=== PATIENT | female | born 1950 | race American Indian/Alaskan Native ===

== ENCOUNTER 2017-08-08 09:32 | Emergency (ER) | payer MEDICARE, MEDICAID, OTHER ==
[2017-08-08] MEDS ORDERED: Ketorolac 30 MG/ML SDV IM ONE ×2 (10:06→10:45)
--- NOTE | 2017-08-08 10:09 | EDM.PDOC ---
ED HPI GENERAL MEDICAL PROBLEM - General Chief Complaint: Lower Extremity Injury/Pain Stated Complaint: [id number] PAIN IN RIGHT LEG THIGH Time Seen by Provider: 08/08/17 10:04 Source of Information: Reports: Patient History Limitations: Reports: No Limitations - History of Present Illness INITIAL COMMENTS - FREE TEXT/NARRATIVE: 67 yo [place] Female c/o 3 days of right buttock and posterior thigh pain. No trauma. 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 Onset Date: 08/05/17 Onset Time: 12:00 Duration: Day(s): Location: Reports: Lower Extremity, Right Quality: Reports: Ache Severity: Moderate Improves with: Reports: None Worsens with: Reports: None Associated Symptoms: Reports: No Other Symptoms Right Upper Leg Pain Score (Numeric/FACES): 6 - Related Data Allergies Allergy/AdvReac Type Severity Reaction Status Date / Time No Known Allergies Allergy Verified 08/08/17 09:51 Home Meds: Home Meds Calcium Carbonate/Vitamin D3 [Calcium 1,000 + D3 Caplet] 1 tab PO BID 08/08/17 [ History] DULoxetine [Cymbalta] 60 mg PO BID 08/08/17 [History] Diclofenac Sodium [Voltaren] 50 mg PO DAILY 08/08/17 [History] Folic Acid/Multivit-Minerals [One-A-Day Vitacraves Gummie] 200 mcg PO DAILY [History] Lisinopril [Lisinopril] 20 mg PO DAILY 08/08/17 [History] Pregabalin [Lyrica] 75 mg PO TID 08/08/17 [History] traMADol HCl [Tramadol HCl] 100 mg PO QID 08/08/17 [History] Social & Family History - Tobacco Use Smoking Status *Q: Current Every Day Smoker Years of Tobacco use: 20 Packs/Tins Daily: 0.5 - Caffeine Use Caffeine Use: Reports: Coffee - Recreational Drug Use Recreational Drug Use: No Review of Systems - Review of Systems Review Of Systems: See Below Constitutional: Reports: No Symptoms Eyes: Reports: No Symptoms Ears: Reports: No Symptoms Nose: Reports: No Symptoms Mouth/Throat: Reports: No Symptoms Respiratory: Reports: No Symptoms Cardiovascular: Reports: No Symptoms GI/Abdominal: Reports: No Symptoms Genitourinary: Reports: No Symptoms Musculoskeletal: Reports: Other (right side buttock and right thigh pain) Skin: Reports: No Symptoms Neurological: Reports: No Symptoms Psychiatric: Reports: No Symptoms ED EXAM, GENERAL - Physical Exam Exam: See Below Exam Limited By: No Limitations General Appearance: Alert, No Apparent Distress Eye Exam: Bilateral Eye: PERRL Ears: Normal External Exam Nose: Normal Inspection Throat/Mouth: Normal Inspection Head: Atraumatic Neck: Normal Inspection Respiratory/Chest: No Respiratory Distress Cardiovascular: Normal Peripheral Pulses Peripheral Pulses: 2+: Femoral (L), Femoral (R) GI/Abdominal: Normal Bowel Sounds Back Exam: Normal Inspection, Full Range of Motion, Other (min right buttock and right thigh tenderness on palpation) Extremities: Normal Inspection Neurological: Alert, Oriented, CN II-XII Intact Psychiatric: Normal Affect Skin Exam: Warm, Dry, Intact, Normal Color, No Rash Lymphatic: No Adenopathy Course - Vital Signs Last Recorded V/S: Last Vital Signs Temp 35.9 C 08/08/17 09:44 Pulse 88 08/08/17 09:44 Resp 16 08/08/17 09:44 BP 140/87 08/08/17 09:44 Pulse Ox 100 08/08/17 09:44 - Orders/Labs/Meds Meds: Medications Discontinued Medications Generic Name Dose Route Start Last Admin Trade Name Freq PRN Reason Stop Dose Admin Ketorolac Tromethamine 30 mg 08/08/17 10:06 Toradol IM 08/08/17 10:07 ONETIME ONE Ketorolac Tromethamine 60 mg 08/08/17 10:45 Toradol IM 08/08/17 10:46 ONETIME ONE Departure - Departure Time of Disposition: 10:53 Disposition: Home, Self-Care 01 Condition: Fair Clinical Impression: Arthritis - Discharge Information Forms: ED Department Discharge Additional Instructions: Rest Apply Moist heat to area of pain TID X 15 mins.\\Take your Medication as prescribed only F/U w/ PCP for re-evaluation and possible referral for Pelvic MRI
== END 2017-08-08 11:23 | disposition home or self-care (01) ==
LOC: DL.ED 09:32
DX: M19.90 Unspecified osteoarthritis, unspecified site (principal); F17.210 Nicotine dependence, cigarettes, uncomplicated
CPT/HCPCS: 72190; 96372; 99283; J1885

== ENCOUNTER 2017-08-19 15:38 | Emergency (ER) | payer MEDICARE, MEDICAID ==
[2017-08-19] MEDS ORDERED: Sodium Chloride 0.9% 1,000 ML IV ONE (15:59)
--- NOTE | 2017-08-19 16:05 | EDM.PDOC ---
ED HPI GENERAL MEDICAL PROBLEM - General Stated Complaint: IN BY AMBULANCE Time Seen by Provider: 08/19/17 15:45 Source of Information: Reports: Patient History Limitations: Reports: No Limitations - History of Present Illness INITIAL COMMENTS - FREE TEXT/NARRATIVE: This 67 yo female patient reports to the ED with increased shortness of breath this afternoon. The patient reports she was seen in the ED on Thursday for right posterior thigh pain. The patient was seen in the [facility] yesterday as a follow-up to the ED visit and was also treated for a UTI. The patient reports she is scheduled for an MRI on Thursday for the pain in her right posterior thigh. The patient reports no history of anxiety, but also reports she is nervous about her health. The patient recently quit smoking and is on Chantex. Onset: Today Duration: Constant Location: Reports: Chest Quality: Reports: Ache, Dull Severity: Moderate Improves with: Reports: None Worsens with: Reports: None - Related Data Allergies Allergy/AdvReac Type Severity Reaction Status Date / Time No Known Allergies Allergy Verified 08/19/17 15:46 Home Meds: Home Meds Calcium Carbonate/Vitamin D3 [Calcium 1,000 + D3 Caplet] 1 tab PO BID 08/08/17 [ History] DULoxetine [Cymbalta] 60 mg PO BID 08/08/17 [History] Diclofenac Sodium [Voltaren] 50 mg PO DAILY 08/08/17 [History] Folic Acid/Multivit-Minerals [One-A-Day Vitacraves Gummie] 200 mcg PO DAILY [History] Lisinopril [Lisinopril] 20 mg PO DAILY 08/08/17 [History] Pregabalin [Lyrica] 75 mg PO TID 08/08/17 [History] traMADol HCl [Tramadol HCl] 100 mg PO QID 08/08/17 [History] Varenicline Tartrate [Chantix] 08/19/17 [History] Past Medical History HEENT History: Reports: None Cardiovascular History: Reports: None Respiratory History: Reports: None Gastrointestinal History: Reports: None Genitourinary History: Reports: None 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 Neurological History: Reports: None Psychiatric History: Reports: Anxiety, Depression Endocrine/Metabolic History: Reports: None Hematologic History: Reports: None Immunologic History: Reports: None Oncologic (Cancer) History: Reports: None Dermatologic History: Reports: None - Infectious Disease History Infectious Disease History: Reports: Measles - Past Surgical History Head Surgeries/Procedures: Reports: None Musculoskeletal Surgical History: Reports: Knee Replacement, Shoulder Surgery Other Musculoskeletal Surgeries/Procedures:: back surgury Social & Family History - Tobacco Use Smoking Status *Q: Current Every Day Smoker Years of Tobacco use: 20 Packs/Tins Daily: 0.5 - Caffeine Use Caffeine Use: Reports: Coffee - Recreational Drug Use Recreational Drug Use: No ED ROS GENERAL - Review of Systems Review Of Systems: ROS reveals no pertinent complaints other than HPI. ED EXAM, GENERAL - Physical Exam Exam: See Below Exam Limited By: No Limitations General Appearance: Alert, WD/WN, Mild Distress, Thin Eye Exam: Bilateral Eye: EOMI, Normal Inspection, PERRL Ears: Normal External Exam, Normal Canal, Hearing Grossly Normal, Normal TMs Nose: Normal Inspection, Normal Mucosa, No Blood Throat/Mouth: Normal Inspection, Normal Lips, Normal Teeth, Normal Gums, Normal Oropharynx, Normal Voice, No Airway Compromise Head: Atraumatic, Normocephalic Neck: Normal Inspection, Supple, Non-Tender, Full Range of Motion Respiratory/Chest: No Respiratory Distress, No Accessory Muscle Use, Chest Non- Tender, Decreased Breath Sounds, Rhonchi (diffuse) Cardiovascular: Normal Peripheral Pulses, Regular Rate, Rhythm, No Edema, No Gallop, No JVD, No Murmur, No Rub GI/Abdominal: Normal Bowel Sounds, Soft, Non-Tender, No Organomegaly, No Distention, No Abnormal Bruit, No Mass Rectal (Female) Exam: Deferred Back Exam: Normal Inspection Extremities: Normal Inspection, Normal Range of Motion, Non-Tender, Normal Capillary Refill, No Pedal Edema Neurological: Alert, Oriented, CN II-XII Intact, Normal Cognition, Normal Gait, Normal Reflexes, No Motor/Sensory Deficits Psychiatric: Anxious Skin Exam: Warm, Dry, Intact, Normal Color, No Rash Lymphatic: No Adenopathy Course - Vital Signs Last Recorded V/S: Last Vital Signs Temp 36.1 C 08/19/17 15:47 Pulse 72 08/19/17 15:47 Resp 16 08/19/17 15:47 BP 99/67 08/19/17 15:47 Pulse Ox 98 08/19/17 15:47 - Orders/Labs/Meds Orders: Active Orders 24 hr Category Date Time Status EKG Documentation Completion [RC] URGENT Care 08/19/17 15:43 Active CULTURE BLOOD [BC] Stat Lab 08/19/17 15:15 Received CULTURE BLOOD [BC] Stat Lab 08/19/17 16:00 Received UA W/MICROSCOPIC [URIN] Stat Lab 08/19/17 15:44 Uncollected Sodium Chloride 0.9% [Normal Saline] 1,000 ml Med 08/19/17 15:59 Active IV .BOLUS Blood Culture x2 Reflex Set [OM.PC] Stat Oth 08/19/17 15:44 Ordered Medication Orders Sodium Chloride (Normal Saline) 1,000 mls @ 500 mls/hr IV .BOLUS ONE Stop: 08/19/17 17:58 Last Admin: 08/19/17 16:09 Dose: 500 mls/hr Labs: Laboratory Tests 08/19/17 08/19/17 08/19/17 Range/Units 15:15 15:15 15:15 WBC 6.9 (5.0-10.0) 10^3/uL RBC 3.80 L (4.2-5.4) 10^6/uL Hgb 11.5 L (12.0-16.0) g/dL Hct 34.7 L (37.0-47.0) % MCV 91.3 (80-100) fL MCH 30.3 (27.0-34.0) pg MCHC 33.1 (33.0-35.0) g/dL Plt Count 222 (150-450) 10^3/uL Neut % (Auto) 79.7 H (42.2-75.2) % Lymph % (Auto) 8.7 L (20.5-50.1) % [place] % (Auto) 10.8 H (2-8) % Eos % (Auto) 0.7 L (1.0-3.0) % Baso % (Auto) 0.1 (0.0-1.0) % Sodium 133 L (135-145) mmol/L Potassium 4.0 (3.6-5.0) mmol/L Chloride 99 L (101-111) mmol/L Carbon Dioxide 26.0 (21.0-31.0) mmol/L Anion Gap 12.0 BUN 16 (7-18) mg/dL Creatinine 1.0 (0.6-1.3) mg/dL Est Cr Clr Drug Dosing 50.41 mL/min Estimated GFR (MDRD) 55 BUN/Creatinine Ratio 16.00 Glucose 118 H (74-105) mg/dL Lactic Acid 0.9 (0.5-2.2) mmol/L Calcium 8.7 (8.4-10.2) mg/dl Total Bilirubin 0.5 (0.2-1.0) mg/dL AST 22 (10-42) IU/L ALT 15 (10-60) IU/L Alkaline Phosphatase 65 (42-121) IU/L Troponin I < 0.02 (0.00-0.02) ng/ml Total Protein 5.9 L (6.7-8.2) g/dl Albumin 3.3 (3.2-5.5) g/dl Globulin 2.6 Albumin/Globulin Ratio 1.27 Meds: Medications Generic Name Dose Route Start Last Admin Trade Name Freq PRN Reason Stop Dose Admin Sodium Chloride 1,000 mls @ 500 mls/hr 08/19/17 15:59 08/19/17 16:09 Normal Saline IV 08/19/17 17:58 500 mls/hr .BOLUS ONE Administration Departure - Departure Time of Disposition: 17:28 Disposition: Home, Self-Care 01 Condition: Fair Clinical Impression: Medication reaction Qualifiers: Encounter type: initial encounter Qualified Code(s): T88.7XXA - Unspecified adverse effect of drug or medicament, initial encounter - Discharge Information Forms: ED Department Discharge Care Plan Goals: The patient was advised of the examination, EKG, lab and x-ray results during the visit. The patient was given IV fluids while in the ED. The [facility] [place] has made arrangements for the patient's daughter for the night so the patient may get some rest. The patient was encouraged to follow-up with her primary care facility for continued evaluation and treatment. The patient was encouraged to stop taking Chantix. If the patient has any additional symptoms or concerns, the patient should follow-up with her primary care facility or return to the emergency department. - My Orders Last 24 Hours: My Active Orders 08/19/17 15:15 CULTURE BLOOD [BC] Stat 08/19/17 15:43 EKG Documentation Completion [RC] URGENT 08/19/17 15:44 UA W/MICROSCOPIC [URIN] Stat Blood Culture x2 Reflex Set [OM.PC] Stat 08/19/17 15:59 Sodium Chloride 0.9% [Normal Saline] 1,000 ml IV .BOLUS 08/19/17 16:00 CULTURE BLOOD [BC] Stat - Assessment/Plan Last 24 Hours: My Active Orders 08/19/17 15:15 CULTURE BLOOD [BC] Stat 08/19/17 15:43 EKG Documentation Completion [RC] URGENT 08/19/17 15:44 UA W/MICROSCOPIC [URIN] Stat Blood Culture x2 Reflex Set [OM.PC] Stat 08/19/17 15:59 Sodium Chloride 0.9% [Normal Saline] 1,000 ml IV .BOLUS 08/19/17 16:00 CULTURE BLOOD [BC] Stat
[2017-08-19 16:29] LABS: CHLORIDE,CL 99 mmol/L (101-111); SODIUM,NA 133 mmol/L (135-145)
--- NOTE | 2017-08-19 16:49 | CR ---
Clinical history: 67-year-old female shortness of breath and tachycardia. Interpretation: Total orthopedic replacement right shoulder. Faint atheromatous calcifications arch o f the aorta. Normal cardiac silhouette without cephalization of flow, signs of alveolar edema or dependent effusio n. No lung mass, hilar lymphadenopathy or focal lobar pneumonia. No atelectasis/collapse. No pneumothorax.
--- NOTE | 2017-08-24 07:32 | EKG ---
08/19/2017 - JENNY LORENZANA - FINDINGS: This 12-lead EKG shows a normal sinus rhythm with a ventricular rate of 73. Normal axis and intervals. No acute ST-segment or T-wave changes. [facility] /[id number]
== END 2017-08-19 17:40 | disposition home or self-care (01) ==
LOC: DL.ED 15:38
DX: R06.02 Shortness of breath (principal); T50.905A Adverse effect of unspecified drugs, medicaments and biological substances, initial encounter; F17.210 Nicotine dependence, cigarettes, uncomplicated
CPT/HCPCS: 36415; 71010; 80053; 83605; 84484; 85025; 87040; 93005; 93010; 96360; 99285; J7030; 99284

== ENCOUNTER 2017-09-26 03:41 | Emergency (ER) | payer MEDICARE, MEDICAID ==
[2017-09-26] MEDS ORDERED: Morphine 2 MG/ML Syringe IVPUSH ONE ×2 (03:49→04:42)
--- NOTE | 2017-09-26 03:55 | EDM.PDOC ---
ED HPI GENERAL MEDICAL PROBLEM - General Stated Complaint: AMBULANCE Time Seen by Provider: 09/26/17 03:45 Source of Information: Reports: Patient History Limitations: Reports: No Limitations - History of Present Illness INITIAL COMMENTS - FREE TEXT/NARRATIVE: This 67 yo female patient was brought to the ED by [facility] due to left forearm pain. The patient reports she got up to go to the bathroom, tripped and fell. The patient reports pain in her left forearm. EMS brought the patient to the ED with a splint on her left forearm. EMS reports an open wound over the area of deformity. The patient reports her current pain is a 10/10. The patient reports she is currently staying with her daughter to assist her due to blindness. The patient reports no loss of consciousness before, during or after the fall. Onset: Today Duration: Minutes: (30) Location: Reports: Upper Extremity, Left Quality: Reports: Ache, Sharp Severity: Severe Improves with: Reports: None Worsens with: Reports: None Context: Reports: Trauma (ground level fall) Associated Symptoms: Reports: No Other Symptoms Left Lower Arm Pain Score (Numeric/FACES): 10 - Related Data Allergies Allergy/AdvReac Type Severity Reaction Status Date / Time No Known Allergies Allergy Verified 08/19/17 15:46 Home Meds: Home Meds Calcium Carbonate/Vitamin D3 [Calcium 1,000 + D3 Caplet] 1 tab PO BID 08/08/17 [ History] DULoxetine [Cymbalta] 90 mg PO DAILY 08/08/17 [History] Diclofenac Sodium [Voltaren] 50 mg PO QID PRN 08/08/17 [History] Lisinopril [Lisinopril] 40 mg PO DAILY 08/08/17 [History] Pregabalin [Lyrica] 100 mg PO TID 08/08/17 [History] traMADol HCl [Tramadol HCl] 75 mg PO TID 08/08/17 [History] Past Medical History HEENT History: Reports: None Cardiovascular History: Reports: None Respiratory History: Reports: None 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5 Gastrointestinal History: Reports: None Genitourinary History: Reports: None 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 Musculoskeletal History: Reports: Arthritis, Osteoporosis Neurological History: Reports: None Psychiatric History: Reports: Anxiety, Depression Endocrine/Metabolic History: Reports: None Hematologic History: Reports: None Immunologic History: Reports: None Oncologic (Cancer) History: Reports: None Dermatologic History: Reports: None - Infectious Disease History Infectious Disease History: Reports: Measles - Past Surgical History HEENT Surgical History: Reports: Cataract Surgery Social & Family History - Family History Family Medical History: Noncontributory - Tobacco Use Smoking Status *Q: Current Every Day Smoker Years of Tobacco use: 20 Packs/Tins Daily: 0.5 Second Hand Smoke Exposure: Yes - Caffeine Use Caffeine Use: Reports: Coffee - Recreational Drug Use Recreational Drug Use: No Review of Systems - Review of Systems Review Of Systems: ROS reveals no pertinent complaints other than HPI. ED EXAM, GENERAL - Physical Exam Exam: See Below Exam Limited By: No Limitations General Appearance: Alert, WD/WN, Moderate Distress, Thin Eye Exam: Bilateral Eye: EOMI, Normal Inspection, PERRL Ears: Normal External Exam, Normal Canal, Hearing Grossly Normal, Normal TMs Nose: Normal Inspection, Normal Mucosa, No Blood Throat/Mouth: Normal Inspection, Normal Lips, Normal Teeth, Normal Gums, Normal Oropharynx, Normal Voice, No Airway Compromise Head: Atraumatic, Normocephalic Neck: Normal Inspection, Supple, Non-Tender, Full Range of Motion Respiratory/Chest: No Respiratory Distress, Lungs Clear, Normal Breath Sounds, No Accessory Muscle Use, Chest Non-Tender Cardiovascular: Normal Peripheral Pulses, Regular Rate, Rhythm, No Edema, No Gallop, No JVD, No Murmur, No Rub GI/Abdominal: Normal Bowel Sounds, Soft, Non-Tender, No Organomegaly, No Distention, No Abnormal Bruit, No Mass (Female) Exam: Deferred Rectal (Female) Exam: Deferred Neurological: Alert, Oriented, CN II-XII Intact, Normal Cognition, Normal Reflexes, Other (The patient was not able to move her fingers due to increased pain, but reports normal sensation distal to her injury. ) Psychiatric: Normal Affect, Normal Mood Lymphatic: No Adenopathy Course - Vital Signs Last Recorded V/S: Last Vital Signs Temp 36.9 C 09/26/17 03:42 Pulse 79 09/26/17 03:42 Resp 18 09/26/17 03:42 BP 151/79 H 09/26/17 03:42 Pulse Ox 99 09/26/17 03:42 - Orders/Labs/Meds Orders: Active Orders 24 hr Category Date Time Status Forearm 2V Lt [CR] Urgent Exams 12/02/17 03:43 Taken Morphine Med 09/26/17 04:42 Once 2 mg IVPUSH ONETIME ONE Labs: Laboratory Tests 09/26/17 09/26/17 Range/Units 03:50 03:50 WBC 5.7 (5.0-10.0) 10^3/uL RBC 4.37 (4.2-5.4) 10^6/uL Hgb 13.0 D (12.0-16.0) g/dL Hct 40.4 (37.0-47.0) % MCV 92.4 (80-100) fL MCH 29.7 (27.0-34.0) pg MCHC 32.2 L (33.0-35.0) g/dL Plt Count 243 (150-450) 10^3/uL Neut % (Auto) 64.0 (42.2-75.2) % Lymph % (Auto) 23.4 (20.5-50.1) % [place] % (Auto) 9.2 H (2-8) % Eos % (Auto) 3.1 H (1.0-3.0) % Baso % (Auto) 0.3 (0.0-1.0) % Sodium 140 (135-145) mmol/L Potassium 3.7 (3.6-5.0) mmol/L Chloride 104 (101-111) mmol/L Carbon Dioxide 28.0 (21.0-31.0) mmol/L Anion Gap 11.7 BUN 16 (7-18) mg/dL Creatinine 0.8 (0.6-1.3) mg/dL Est Cr Clr Drug Dosing 65.45 mL/min Estimated GFR (MDRD) > 60 BUN/Creatinine Ratio 20.00 Glucose 106 H (74-105) mg/dL Calcium 9.0 (8.4-10.2) mg/dl Total Bilirubin 0.4 (0.2-1.0) mg/dL AST 28 (10-42) IU/L ALT 16 (10-60) IU/L Alkaline Phosphatase 61 (42-121) IU/L Total Protein 6.2 L (6.7-8.2) g/dl Albumin 3.8 (3.2-5.5) g/dl Globulin 2.4 Albumin/Globulin Ratio 1.58 Meds: Medications Discontinued Medications Generic Name Dose Route Start Last Admin Trade Name Swapna PRN Reason Stop Dose Admin Morphine Sulfate 2 mg 09/26/17 03:49 09/26/17 04:12 Morphine IVPUSH 09/26/17 03:50 2 mg ONETIME ONE Administration Departure - Departure Time of Disposition: 04:42 Disposition: DC/Tfer to Acute Hospital 02 Condition: Fair Clinical Impression: Open fracture of left radius and ulna Qualifiers: Encounter type: initial encounter Open fracture type: open type I or II Qualified Code(s): S52.92XB - Unspecified fracture of left forearm, initial encounter for open fracture type I or II; S52.202B - Unspecified fracture of shaft of left ulna, initial encounter for open fracture type I or II; S52.202B - Unspecified fracture of shaft of left ulna, initial encounter for open fracture type I or II - Discharge Information Forms: Interfacility Transfer EMTALA Care Plan Goals: Discussed the examination, history and x-ray results with Dr. Pizarro (Ortho with [facility] in [place]). Dr. Pizarro accepted the patient for continued evaluation and further management. The patient will be transported by [facility]. - My Orders Last 24 Hours: My Active Orders 09/26/17 03:43 Forearm 2V Lt [CR] Urgent 09/26/17 04:42 Morphine 2 mg IVPUSH ONETIME ONE - Assessment/Plan Last 24 Hours: My Active Orders 09/26/17 03:43 Forearm 2V Lt [CR] Urgent 09/26/17 04:42 Morphine 2 mg IVPUSH ONETIME ONE
[2017-09-26 04:20] LABS: CHLORIDE,CL 104 mmol/L (101-111); SODIUM,NA 140 mmol/L (135-145)
== END 2017-09-26 05:16 ==
LOC: DL.ED 03:41
DX: S52.202B Unspecified fracture of shaft of left ulna, initial encounter for open fracture type I or II (principal); F17.210 Nicotine dependence, cigarettes, uncomplicated; Z79.899 Other long term (current) drug therapy; W01.0XXA Fall on same level from slipping, tripping and stumbling without subsequent striking against object, initial encounter
CPT/HCPCS: 36415; 73090; 80053; 85025; 96374; 96376; 99285; J2270; 99284

== ENCOUNTER 2019-02-14 06:19 | Day surgery (SDC) | payer MEDICARE, MEDICAID ==
[~2019-02-14 06:19] MED LIST: Dextrose 5%-0.45% NaCl 1,000 ML IV SCH; Midazolam 1 MG/ML 2 ML SDV ONE; Sodium Chloride 0.9% 10 ML Syringe FLUSH PRN; fentaNYL 100 MCG/2 ML SDV ONE
[2019-02-14] MEDS ORDERED: Midazolam 1 MG/ML 2 ML SDV IV ONE ×3 (06:20→07:07)
[2019-02-14] MEDS ORDERED: fentaNYL 100 MCG/2 ML SDV IV ONE ×3 (06:20→07:06)
--- NOTE | 2019-02-14 13:46 | OR ---
DATE: 02/14/2019 PROCEDURE PERFORMED: Esophagogastroduodenoscopy, NBI, and multiple pinch biopsies. INSTRUMENT USED: [id number]-[id number] Olympus video panendoscope. PREMEDICATIONS: No oral topical anesthesia used. Fentanyl 100 mcg intravenous, Versed 2 mg intravenous. Nasal O2 cannula. The procedure was done under pulse oximetry, BP recording, and gasoline tester. INDICATION: The patient with heartburn as well as high to mid dysphagia for solids, unexplained and not responsive to medical measures, status post Fosamax therapy. Esophagogastroduodenoscopy is performed for detection of any active erosive lesions, Pablo esophagus, and/or malignancy also under consideration. H. pylori status to be determined, esophageal dilatations if indicated, endoscopic hemostasis therapy if needed. PROCEDURE IN DETAIL: The scope was passed with ease. Adequate visualization of the esophagus was made from proximal to distal areas. No upper esophageal lesions identified. No distal esophageal stricture. No uphill or downhill esophageal varices. No Hillary-Silveira tear. Grade D erosive changes were noted by [place] criteria. No esophageal polyp or tumor mass identified. Sliding hiatal hernia was noted. No proximal gastric varices noted. Gastric fundus examination by retroflexion showed no polypoid lesions. Z-line was noted at around 35 cm distal to the oral verge. No gastric ulcer, malignant mass, or vascular ectasia identified. Duodenal bulb showed no ulcer. Visualized second part of the duodenum was unremarkable. Multiple pinch biopsies were taken from the gastric antrum and proximal body and sent for PyloriTek test for H. pylori, and if negative in an hour, tissue is to be sent for histopathology. No bleeding was noted from any of the visualized areas at the completion of examination. Photographs were taken of the duodenal bulb, gastric antrum, fundus, and distal esophagus, NBI views of the distal esophagus were obtained. IMPRESSION: 1. Grade D gastroesophageal reflux disease. 2. Sliding hiatal hernia. The patient tolerated the procedure well. [facility] /[id number]
--- NOTE | 2019-02-14 15:00 | LETTER ---
02/14/2019 Bekah Ivory MD [facility] [address] [place] [address] RE: MARYJO SOLIS : [address] Ivory: Ms. Maryjo Solis had esophagogastroduodenoscopy done this morning and she tolerated the procedure well. She has been recommended to keep away from esophageal and gastric irritants. She was put on omeprazole 20 mg p.o. daily. Thank you. Sincerely, [facility] /[id number]
== END 2019-02-14 09:08 | disposition home or self-care (01) ==
LOC: DL.ENDO 06:19
PROVIDERS: ATTEND Internal Medicine Gastroenterology
DX: K29.50 Unspecified chronic gastritis without bleeding (principal); K21.0 Gastro-esophageal reflux disease with esophagitis; K44.9 Diaphragmatic hernia without obstruction or gangrene; B96.81 Helicobacter pylori [H. pylori] as the cause of diseases classified elsewhere; I10 Essential (primary) hypertension; F17.210 Nicotine dependence, cigarettes, uncomplicated; M81.0 Age-related osteoporosis without current pathological fracture; Z80.0 Family history of malignant neoplasm of digestive organs; Z98.890 Other specified postprocedural states
CPT/HCPCS: 43239; 87077; J2250; J3010; J7042; 88305; 88342

== ENCOUNTER 2019-02-17 06:04 | Day surgery (SDC) | payer MEDICARE, MEDICAID, OTHER ==
[~2019-02-17 06:04] MED LIST changes: -Midazolam 1 MG/ML 2 ML SDV ONE; -fentaNYL 100 MCG/2 ML SDV ONE
[2019-02-17] MEDS ORDERED: Midazolam 1 MG/ML 2 ML SDV IV ONE ×6 (06:05→07:41)
[2019-02-17] MEDS ORDERED: fentaNYL 100 MCG/2 ML SDV IV ONE ×3 (06:05→07:30)
[2019-02-17] MEDS ORDERED: Midazolam 1 MG/ML 2 ML SDV ONE (06:14)
[2019-02-17] MEDS ORDERED: fentaNYL 100 MCG/2 ML SDV ONE (06:14)
--- NOTE | 2019-02-17 13:28 | OR ---
DATE: 02/17/2019 PROCEDURE PERFORMED: Total colonoscopy. INSTRUMENT USED: [id number]-[id number] Olympus video colonoscope. PREMEDICATIONS: Fentanyl 100 mcg intravenous, Versed 3 mg intravenous. Nasal O2 cannula. The procedure was done under pulse oximetry, BP recording, and shelter monitor. INDICATION: The patient with recent onset of constipation, unexplained and not responsive to medical measures. Colonoscopic examination is done for detection of any polypoid lesions and removal, endoscopic hemostasis therapy if needed. Has family history for colon cancer. DESCRIPTION OF PROCEDURE: Initial rectal exam was unremarkable. Rigid anoscopy was normal. The colonoscope was passed with ease. Scattered diverticula were noted in the distal left colon along with some deformity. The scope was passed with ease up to the ileocecal area. Photographs were taken of the normal- appearing cecum, identified by double-bulged ileocecal folds. No bleeding was noted from any of the visualized areas at the commencement of the examination. There was moderate amount of fecal material that had to be aspirated. Bowel preparation, [place] scale 2. No stricture. No vascular ectasia. No large isolated ulcerations seen. No evidence of diffuse inflammatory bowel disease in the form of friability, contact bleeding, or ulcerations. No polyp or tumor mass identified. Probing the proximal sides of folds and flexures using adequate distention and clearing up the stool material, withdrawal of the scope was made, cecum to rectum, time over 6 minutes. No bleeding was noted from any of the visualized areas at the completion of examination. IMPRESSION: Diverticulosis. The patient tolerated the procedure well. [facility] /[id number]
--- NOTE | 2019-02-17 15:08 | LETTER ---
02/17/2019 Bekah Ivory MD [facility] [address] [place] [address] RE: MARYJO SOLIS : [address] Ivory: Ms. Maryjo Solis had colonoscopic examination done this morning and she tolerated the procedure well. I herewith send a copy of the endoscopy note and photographs for your review. Thank you. Sincerely, [facility] /[id number]
== END 2019-02-17 09:54 | disposition home or self-care (01) ==
LOC: DL.ENDO 06:04
PROVIDERS: ATTEND Internal Medicine Gastroenterology
DX: K57.30 Diverticulosis of large intestine without perforation or abscess without bleeding (principal); I10 Essential (primary) hypertension; F17.210 Nicotine dependence, cigarettes, uncomplicated; M81.0 Age-related osteoporosis without current pathological fracture; Z80.0 Family history of malignant neoplasm of digestive organs
CPT/HCPCS: G0105; J2250; J3010; J7042; 45378

== ENCOUNTER → 2019-07-07 | Day surgery (SDC) | payer MEDICARE, MEDICAID, OTHER ==
[~2019-07-07] MED LIST changes: +Bupivacaine 0.5% 30 ML SDV ONE; -Dextrose 5%-0.45% NaCl 1,000 ML IV SCH; +Lactated Ringers 1,000 ML IV SCH; +Lidocaine 1% 30 ML SDV ONE; +ceFAZolin 2 GM in Premix Bag 1 BAG IV ONE
== END ==
LOC: DL.SDS 08:09
PROVIDERS: ATTEND Podiatrist
DX: M21.612 Bunion of left foot (principal); Z53.8 Procedure and treatment not carried out for other reasons
CPT/HCPCS: J0690; J7120

== ENCOUNTER 2019-07-21 08:59 | Day surgery (SDC) | payer MEDICARE, MEDICAID, OTHER ==
[~2019-07-21 08:59] MED LIST changes: -Bupivacaine 0.5% 30 ML SDV ONE; -Lidocaine 1% 30 ML SDV ONE; -ceFAZolin 2 GM in Premix Bag 1 BAG IV ONE
[2019-07-21] MEDS ORDERED: Lidocaine 1% 30 ML SDV INJECT ONE (09:00)
[2019-07-21] MEDS ORDERED: Midazolam 1 MG/ML 2 ML SDV IV ONE (09:00)
[2019-07-21] MEDS ORDERED: fentaNYL 100 MCG/2 ML SDV IV ONE (09:00)
[2019-07-21] MEDS ORDERED: Propofol 200 MG/20 ML SDV IV ONE (09:00)
[2019-07-21] MEDS ORDERED: Bupivacaine 0.5% 30 ML SDV INJECT ONE (09:00)
[2019-07-21] MEDS ORDERED: Ondansetron 4 MG/2 ML SDV IV ONE (09:00)
[2019-07-21] MEDS ORDERED: Bupivacaine 0.5% 30 ML SDV ONE (10:12)
[2019-07-21] MEDS ORDERED: Lidocaine 1% 30 ML SDV ONE (10:12)
[2019-07-21] MEDS: ceFAZolin 2 GM in Premix Bag 1 BAG IV ONE (10:20)
[2019-07-21] MEDS: Lidocaine 1% 30 ML SDV INJECT ONE ×2 (10:36→11:40)
[2019-07-21] MEDS: Bupivacaine 0.5% 30 ML SDV INJECT ONE ×2 (10:36→11:40)
[2019-07-21] MEDS ORDERED: Acetaminophen/oxyCODONE 325-5 MG Tab PO PRN (12:08)
--- NOTE | 2019-07-21 12:10 | PCM.OPNOTE ---
- General Post-Op/Procedure Note Date of Surgery/Procedure: 07/21/19 Operative Procedure(s): left foot 1st metatarsal bunionectomy Pre Op Diagnosis: left foot painful bunion Post-Op Diagnosis: francesco Anesthesia Technique: Local, MAC Primary Surgeon: Lata Lui Anesthesia Provider: Yfn Mota EBL in mLs: 5 Complications: none Condition: Good Free Text/Narrative:: Pt tolerated procedure well and was transported to recovery with vascular status intact to left foot. nora 3.0 cannulated screws placed at osteotomy site. well padded compression dressing applied.
[2019-07-21] MEDS: Lactated Ringers 1,000 ML IV SCH (13:48)
--- NOTE | 2019-07-22 19:55 | OR ---
DATE: 07/21/2019 PREOPERATIVE DIAGNOSIS: Left foot painful bunion. POSTOPERATIVE DIAGNOSIS: Left foot painful bunion. PROCEDURE PERFORMED: Left foot first metatarsal osteotomy/bunionectomy. ANESTHESIA: Local MAC with preoperative local block of 10 mL 1:1 mixture of 1% lidocaine plain and 0.5% Marcaine plain. TOURNIQUET TIME: 60 minutes, pneumatic ankle tourniquet. ESTIMATED BLOOD LOSS: Minimal. SPECIMEN: None. COMPLICATIONS: None. INDICATIONS: Maryjo is a 69-year-old female who presents with painful bunion on her left foot. This has been bothering her for several years now. She has tried multiple different shoes and padding without relief. She states she did have a bunionectomy performed on her right foot when she lived in [place], this was several years ago. She is doing well with that. She has failed conservative options for surgery. X-rays of the left foot revealed a medially deviated first metatarsal with an IM angle of approximately 10 degrees; however, there is a significant metatarsus adductus present. There is a subchondral cyst at the first metatarsal head. The patient voiced good understanding of proposed procedure and possible complications and elects to have surgery at this time. DESCRIPTION OF PROCEDURE: The patient was taken to the operating room lying in supine position. After adequate anesthesia induction as described above, the left foot was prepped and draped in the usual sterile fashion. Pneumatic ankle tourniquet was inflated to 225 mmHg. Attention was then directed to the dorsal aspect of the first metatarsophalangeal joint where an approximately 6 cm linear incision was made overlying the joint. Sharp and blunt dissection were performed down to the level of the joint capsule with care to gently retract all neurovascular structures. An inverted L capsulotomy was made to expose the distal first metatarsal. A hypertrophic medial eminence was noted, and there was some denuded cartilage at the dorsal medial aspect of the joint. This was removed with a sagittal saw. The rest of the joint appeared healthy in appearance without any defects present. Blunt dissection was performed in the first interspace to the level of the fibular sesamoid, and the adductor hallucis tendon was transected. A sagittal saw was then used to make a chevron-type osteotomy with a long dorsal arm angulated in a fashion that would allow maintenance of length with lateral transposition of the capital fragment. The capital fragment was then transposed laterally 7 mm and impacted to bring the hallux in a new rectus alignment. K-wire from the screw sets were then used as temporary fixation. Two partially-threaded cannulated [place] screws, 3.0 screws, were then placed across the osteotomy site. The osteotomy site was noted to be stable with all forces applied and fluid range of motion of first MTPJ. Fluoroscopy was used to verify proper reduction of the deformity and proper fixation. The medial shelf was removed. A medial capsulorrhaphy was made. The patient was noted to have very soft bone throughout this procedure; therefore, reason for the Yamileth bunionectomy rather than a more proximal procedure. The area was irrigated with copious amounts of sterile saline. Capsular closure was completed with 3-0 Vicryl. Skin closure was completed with 4-0 nylon. The area was dressed with Xeroform to the incision site, fluffs, Webril, and Lane wrap. She was placed on weightbearing. The patient tolerated the anesthesia well and was transported to Recovery with vascular status intact as noted by immediate hyperemia upon deflation of the ankle tourniquet. She was then discharged home when she met hospital discharge requirements. [facility] /[id number]
== END 2019-07-21 13:28 | disposition home or self-care (01) ==
LOC: DL.SDS 08:59
PROVIDERS: ATTEND Podiatrist
DX: M21.612 Bunion of left foot (principal); I10 Essential (primary) hypertension; K21.9 Gastro-esophageal reflux disease without esophagitis; F17.210 Nicotine dependence, cigarettes, uncomplicated; F32.9 Major depressive disorder, single episode, unspecified; B19.20 Unspecified viral hepatitis C without hepatic coma; M81.0 Age-related osteoporosis without current pathological fracture; M17.12 Unilateral primary osteoarthritis, left knee; N39.3 Stress incontinence (female) (male); Z79.51 Long term (current) use of inhaled steroids; Z79.1 Long term (current) use of non-steroidal anti-inflammatories (NSAID); Z79.899 Other long term (current) drug therapy
CPT/HCPCS: 28296; C1713; J0690; J2001; J2250; J2405; J2704; J3010; J3490; J7120

== ENCOUNTER 2019-08-17 11:22 | Day surgery (SDC) | payer MEDICARE, MEDICAID, OTHER ==
[~2019-08-17 11:22] MED LIST changes: -Lactated Ringers 1,000 ML IV SCH
[2019-08-17] MEDS ORDERED: Bupivacaine 0.5% 30 ML SDV INJECT ONE ×4 (11:23→14:23)
[2019-08-17] MEDS ORDERED: Lidocaine 1% 30 ML SDV INJECT ONE ×4 (11:23→14:23)
[2019-08-17] MEDS ORDERED: Bupivacaine 0.5% 30 ML SDV ONE (11:52)
[2019-08-17] MEDS ORDERED: Lidocaine 1% 30 ML SDV ONE (11:53)
[2019-08-17] MEDS ORDERED: Lactated Ringers 1,000 ML IV SCH (12:00)
[2019-08-17] MEDS ORDERED: ceFAZolin 2 GM in Premix Bag 1 BAG IV ONE (12:00)
[2019-08-17] MEDS ORDERED: Acetaminophen/oxyCODONE 325-5 MG Tab PO PRN (14:55)
--- NOTE | 2019-08-17 16:35 | PCM.OPNOTE ---
- General Post-Op/Procedure Note Date of Surgery/Procedure: 08/17/19 Operative Procedure(s): left foot revisional bunionectomy with non union repair , 2nd metatarsal closed reduction of fracture. Pre Op Diagnosis: left foot displacement after bunionectomy with non union , 2nd metatarsal fracture. Post-Op Diagnosis: francesco Anesthesia Technique: Local, MAC Primary Surgeon: Lata Lui Anesthesia Provider: Yfn Mota EBL in mLs: 5 Complications: none Condition: Stable Free Text/Narrative:: Intake & Output 08/17/19 08/17/19 08/17/19 06:59 14:59 22:59 Intake Total 50 800 Balance 50 800 Pt tolerated procedure well and was transported to recovery with vascular status intact to left foot. 2.7 nora locking screws placed at non union site with 4 hole plate.
--- NOTE | 2019-08-18 15:53 | OR ---
DATE: 08/17/2019 PREOPERATIVE DIAGNOSES: 1. Left foot displaced osteotomy fragment of the bunionectomy. 2. Left foot second metatarsal fracture. POSTOPERATIVE DIAGNOSES: 1. Left foot displaced osteotomy fragment of the bunionectomy. 2. Left foot second metatarsal fracture. PROCEDURES PERFORMED: 1. Left foot hardware excision with nonunion repair and revisional bunionectomy of the first metatarsal. 2. Left foot closed reduction of the second metatarsal. ANESTHESIA: Local MAC with preoperative local block of 10 mL 1:1 mixture of 1% lidocaine plain and 0.5% Marcaine plain. TOURNIQUET TIME: 88 minutes, pneumatic ankle tourniquet. ESTIMATED BLOOD LOSS: Minimal. SPECIMEN: None. COMPLICATIONS: None. INDICATIONS: Maryjo is a 69-year-old female who presents with injury to her surgical foot. I had done a bunionectomy on her 4 weeks ago. She states that since that time, she dropped a heavy object from her fridge onto the top of that foot. She had immediate pain, and then when she was trying to walk up the stairs after that, she felt a crunch in the bone. She did have increased swelling and pain after that. She has not been compliant with nonweightbearing after her surgery and has been walking on this foot. X-rays of the left foot reveals displaced osteotomy fragment of the first metatarsal with a significant gap at the osteotomy site and the proximal portion of the osteotomy is sticking dorsally up into the soft tissues. The hardware is not intact. There is also a displaced second metatarsal fracture. The patient voiced good understanding of the proposed procedure and possible complications and elects to have surgery at this time. DESCRIPTION OF PROCEDURE: The patient was taken to the operating room lying in supine position. After adequate anesthesia induction as described above, the left foot was prepped and draped in the usual sterile fashion. A pneumatic ankle tourniquet was inflated to 225 mmHg. Attention was then directed to the dorsal aspect of the first metatarsophalangeal joint at the area of the prior incision where an approximately 6 cm linear incision was made. Sharp and blunt dissection were performed down to the level of the bunionectomy site. An inverted L capsulotomy was made and the capsule was reflected to expose the distal first metatarsal nonunion site. The hardware was completely loose and this was removed. The osteotomy site was displaced, and there was no bony growth at all between the fragments. All the fibrotic tissue was cleaned out between the bony fragments, and a bone rasp was used to rasp the edges of the bone to get to good bleeding bone on both sides of the osteotomy. The bunion was then reduced and the osteotomy site was well approximated. A 4-hole Seamus plate was placed at the dorsal aspect of the first metatarsal and 2.7 locking screws were inserted into the plate. Fluoroscopy was used to verify proper positioning of the plate and screws. I was able to visualize the dorsal aspect of the screws and none were too long and they were good length. The bunionectomy site was noted to be stable with all forces applied with this plate and screws. Attention was then directed to the second metatarsal and I was able to close reduce this by applying traction on that second digit and distal second metatarsal, was able to get in a good alignment. The area was then irrigated with copious amounts of sterile saline to the surgical site. Deep capsular closure was completed with 3-0 Vicryl and skin closure was completed with 4-0 nylon. The hallux was noted to be in near-rectus alignment at this time. The surgical site was dressed with Xeroform to the incision site, fluffs, Webril, and a well-padded L and U splint was applied with the foot in neutral position. The patient tolerated the procedure and anesthesia well and left the operating room for recovery with vital signs stable and vascular status intact to the left foot as noted by immediate hyperemia upon deflation of the ankle tourniquet. The patient was again instructed absolutely no weight on the foot and she states she understands. The patient was then discharged home when she met hospital discharge requirements. [facility] /[id number]
== END 2019-08-17 16:10 | disposition home or self-care (01) ==
LOC: DL.SDS 11:22
PROVIDERS: ATTEND Podiatrist
DX: S93.335A Other dislocation of left foot, initial encounter (principal); S92.322A Displaced fracture of second metatarsal bone, left foot, initial encounter for closed fracture; T84.398A Other mechanical complication of other bone devices, implants and grafts, initial encounter; I10 Essential (primary) hypertension; F17.210 Nicotine dependence, cigarettes, uncomplicated; M81.0 Age-related osteoporosis without current pathological fracture; M51.37 Other intervertebral disc degeneration, lumbosacral region; M48.061 Spinal stenosis, lumbar region without neurogenic claudication; W20.8XXA Other cause of strike by thrown, projected or falling object, initial encounter; Z91.19 Patient's noncompliance with other medical treatment and regimen; Z79.1 Long term (current) use of non-steroidal anti-inflammatories (NSAID); Z79.51 Long term (current) use of inhaled steroids; Z79.899 Other long term (current) drug therapy
CPT/HCPCS: 01480; 28322; 28475; C1713; C1776; J0690; J2001; J3490; J7120

== ENCOUNTER 2021-04-03 12:38 | Emergency (ER) | payer MEDICARE, MEDICAID ==
--- NOTE | 2021-04-03 12:42 | EDM.PDOC ---
ED HPI GENERAL MEDICAL PROBLEM - General Chief Complaint: Head Injury Stated Complaint: INJURY TO THE BACK TO HEAD, DIZZY Time Seen by Provider: 04/03/21 12:42 Source of Information: Reports: Patient, Family, Old Records, RN, RN Notes Reviewed History Limitations: Reports: No Limitations - History of Present Illness INITIAL COMMENTS - FREE TEXT/NARRATIVE: Pt presents to ER from home by POV with c/o of recurrent episodes of "room spin" dizziness that began yesterday. Pt states the when the dizziness begins she cannot tell if she is upright or falling. Today she was looking for her walker in the closet and became dizzy and fell, cutting the back of her head on the edge of the door or furniture. She denies LOC, neck pain, or nausea. Last Tetanus vaccine was >10 years ago per pt. She denies chest pain, palpitations, syncope, or any other injury. Onset: Sudden Onset Date: 04/02/21 Duration: Recurring Location: Reports: Generalized Severity: Severe Improves with: Reports: None Worsens with: Reports: Movement Associated Symptoms: Reports: No Other Symptoms Head Pain Score (Numeric/FACES): 7 - Related Data Allergies Allergy/AdvReac Type Severity Reaction Status Date / Time No Known Allergies Allergy Verified 08/17/19 11:43 Home Meds: Home Meds Calcium Carbonate/Vitamin D3 [Calcium 1,000 + D3 Caplet] 1 tab PO BID 08/08/17 [History] DULoxetine [Cymbalta] 90 mg PO DAILY 08/08/17 [History] Lisinopril 40 mg PO DAILY 08/08/17 [History] Celecoxib 400 mg PO DAILY 02/11/19 [History] Cholecalciferol (Vitamin D3) [Vitamin D3] 1,000 units PO ASDIRECTED 02/11/19 [History] Multivitamin [Daily Gonzalez] 1 tab PO DAILY 02/11/19 [History] Ibandronate Sodium 150 mg PO .MONTHLY 02/14/19 [History] Pregabalin [Lyrica] 200 mg PO TID 02/14/19 [History] Metoprolol Succinate [Toprol XL] 12.5 mg PO DAILY 07/20/19 [History] Acetaminophen/oxyCODONE [Percocet 325-5 MG] 1 tab PO Q8H PRN 08/17/19 [History] Calcium Acetate [PhosLo] 667 mg PO BID 08/17/19 [History] Diclofenac Sodium [Voltaren 1% Gel] 1 applic TOP QID PRN 08/17/19 [History] Fluticasone Propionate [Flonase] 1 - 2 spray NASBOTH ASDIRECTED 08/17/19 [History] Losartan [Cozaar] 100 mg PO DAILY 08/17/19 [History] Omeprazole 20 mg PO BID 08/17/19 [History] Oxybutynin [Oxybutynin ER] 5 mg PO DAILY 08/17/19 [History] Past Medical History HEENT History: Reports: Allergic Rhinitis, Other (See Below) Other HEENT History: wears upper and lower dentures Cardiovascular History: Reports: Hypertension Respiratory History: Reports: TB 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5 Gastrointestinal History: Reports: GERD Genitourinary History: Reports: None 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: , 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 Musculoskeletal History: Reports: Arthritis, Fracture, Osteoporosis, Other (See Below) Other Musculoskeletal History: LEFT ARM FRACTURE 2 YEARS AGO Neurological History: Reports: None Psychiatric History: Reports: Anxiety, Depression Endocrine/Metabolic History: Reports: Vitamin D Deficiency Hematologic History: Reports: Anemia, Blood Transfusion(s) Immunologic History: Reports: None Oncologic (Cancer) History: Reports: Other (See Below) Other Oncologic History: 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 Dermatologic History: Reports: None - Infectious Disease History Infectious Disease History: Reports: Chicken Pox, Measles, Shingles, TB - Past Surgical History Head Surgeries/Procedures: Reports: None HEENT Surgical History: Reports: Cataract Surgery, LASIK Cardiovascular Surgical History: Reports: None Respiratory Surgical History: Reports: None GI Surgical History: Reports: Colonoscopy, EGD Female Surgical History: Reports: Section, Other (See Below) Other Female Surgeries/Procedures: 3 sections Endocrine Surgical History: Reports: None Neurological Surgical History: Reports: C-Spine, Vertebroplasty Musculoskeletal Surgical History: Reports: Knee Replacement, Shoulder Surgery, Other (See Below) Other Musculoskeletal Surgeries/Procedures:: TOTAL KNEE ARTHROPLASTY RIGHT. SURGICAL REPAIR OF LEFT FOREARM WITH HARDWARE. BUNION REMOVED RIGHT FOOT. BUNIONECTOMY LEFT FOOT Dermatological Surgical History: Reports: Skin Biopsy Social & Family History - Family History Family Medical History: No Pertinent Family History - Caffeine Use Caffeine Use: Reports: Coffee Caffeine Use Comment: POT OF COFFEE A DAY - DRINKING DECAF THESE DAY. - Living Situation & Occupation Living situation: Reports: with Family Occupation: Retired ED ROS GENERAL - Review of Systems Review Of Systems: Comprehensive ROS is negative, except as noted in HPI. ED EXAM, HEAD INJURY - Physical Exam Exam: See Below Exam Limited By: No Limitations General Appearance: Alert, WD/WN, No Apparent Distress Head: Normocephalic, Scalp Lacerations (Linear vertical 7cm occipital scalp lacertation to depth of subcutaneous tissue, no active bleeding), Scalp Tenderness. No: Scalp Swelling, Scalp Ecchymosis, Scalp Hematoma, Active Bleeding Nexus Criteria: No: Posterior, Midline Cervical Tenderness, Evidence of Intoxication, Altered Level of Consciousness, Focal Neurological Deficit, Painful Distraction Injuries Eyes: Bilateral Eye: EOMI, Nystagmus (Left lateral gaze), PERRL Ears: Normal External Exam, Normal Canal, Hearing Grossly Normal, Normal TMs Nose: Normal Inspection, Normal Mucousa, No Blood Throat/Mouth: Normal Inspection, Normal Lips, Normal Teeth, Normal Gums, Normal Oropharynx, Normal Voice, No Airway Compromise Neck: Non-Tender, Full Range of Motion, Normal Alignment, Normal Inspection Respiratory: No Respiratory Distress, Lungs Clear, Normal Breath Sounds, No Accessory Muscle Use, Chest Non-Tender Cardiovascular: Normal Peripheral Pulses, Regular Rate, Rhythm, No Edema, No Gallop, No JVD, No Murmur, No Rub GI/Abdominal Exam: Normal Bowel Sounds, Soft, Non-Tender Back Exam: Normal Inspection Extremities: Normal Inspection, Normal Range of Motion, Non-Tender, No Pedal Edema, Normal Capillary Refill 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 As Tested, No Motor/Sensory Deficits, Alert, Normal Mood/Affect, Oriented x 3 Skin: Normal Color, Warm/Dry - [place] Coma Score Best Eye Response (Tabitha): (4) Open Spontaneously Best Verbal Response ([place]): (5) Oriented Best Motor Response ([place]): (6) Obeys Commands [place] Total: 15 ED LACERATION/WOUND & EWELINA PROC - Laceration/Wound Repair Posterior Medial Head Lac/wound length in cm: 7 Appearance: Subcutaneous, Linear, Clean Distal NVT: Neuro & Vascular Intact Anesthetic Type: Local Local Anesthesia - Lidocaine (Xylocaine): 1% Plain Local Anesthetic Volume: Other (12cc) Skin Prep: Chlorhexidine (Hibiciens), Saline Exploration/Debridement/Repair: Wound Explored, In a Bloodless Field, Explored to Base, Minimal Debridement, Minimally Undermined Closed with: [place] # of Sutures: 9 Suture Type: Interrupted Drain Placement: No Sterile Dressing Applied: None Tetanus Status Addressed: Yes Complications: No #1 Interpretation EKG Date: 04/03/21 Time: 13:48 Rhythm: Other (SR with PVC) Rate (Beats/Min): 80 [facility]: LAD-Left [facility] Deviation P-Wave: Present QRS: Normal ST-T: Normal QT: Normal Comparison: NA - No Prior EKG Course - Vital Signs Last Recorded V/S: Last Vital Signs Temp 97.4 F 04/03/21 12:55 Pulse 92 04/03/21 12:55 Resp 23 H 04/03/21 12:55 BP 127/68 04/03/21 12:55 Pulse Ox 96 04/03/21 12:55 Orthostatic Blood Pressure [ 114/99 Standing] Orthostatic Blood Pressure [ 98/70 Sitting] Orthostatic Blood Pressure [ 112/74 Supine] - Orders/Labs/Meds Orders: Active Orders 24 hr Category Date Time Status EKG 12 Lead [EKG Documentation Completion] [RC] STAT Care 04/03/21 13:13 Active Orthostatic Vital Signs [RC] ASDIRECTED Care 04/03/21 13:52 Active Vaccines to be Administered [RC] PER UNIT ROUTINE Care 04/03/21 13:14 Active CULTURE URINE [RM] Stat Lab 04/03/21 14:19 Received UA W/MICROSCOPIC [URIN] Stat Lab 04/03/21 14:19 Results Sodium Chloride 0.9% [Normal Saline] 1,000 ml Med 04/03/21 15:00 Active IV .BOLUS Medication Orders Sodium Chloride (Normal Saline) 1,000 mls @ 999 mls/hr IV .BOLUS ONE Stop: 04/03/21 16:00 Labs: Laboratory Tests 04/03/21 04/03/21 04/03/21 Range/Units 13:43 13:43 14:19 WBC 8.8 (5.0-10.0) 10^3/uL RBC 4.75 (4.2-5.4) 10^6/uL Hgb 13.9 (12.0-16.0) g/dL Hct 42.4 (37.0-47.0) % MCV 89.3 D (80-100) fL MCH 29.3 (27.0-34.0) pg MCHC 32.8 L (33.0-35.0) g/dL Plt Count 327 D (150-450) 10^3/uL Neut % (Auto) 79.2 H (42.2-75.2) % Lymph % (Auto) 13.5 L (20.5-50.1) % [place] % (Auto) 6.1 (2-8) % Eos % (Auto) 0.9 L (1.0-3.0) % Baso % (Auto) 0.3 (0.0-1.0) % Sodium 137 (136-145) mmol/L Potassium 3.0 L (3.5-5.1) mmol/L Chloride 97 L (98-107) mmol/L Carbon Dioxide 32 (21-32) mmol/L Anion Gap 11.0 (7-13) mEq/L BUN 24 H (7-18) mg/dL Creatinine 1.47 H (0.55-1.02) mg/dL Est Cr Clr Drug Dosing 29.87 mL/min Estimated GFR (MDRD) 35 BUN/Creatinine Ratio 16.3 (No establ ref range) Glucose 98 (70-99) mg/dL Calcium 8.7 (8.5-10.1) mg/dL Magnesium 1.6 L (1.8-2.4) mg/dL Total Bilirubin 0.6 (0.2-1.0) mg/dL AST 24 (15-37) U/L ALT 19 (14-59) U/L Alkaline Phosphatase 69 (46-116) U/L Troponin I High Sens 9 (<=51) pg/mL Total Protein 6.0 L (6.4-8.2) g/dL Albumin 2.9 L (3.4-5.0) g/dL Globulin 3.1 Albumin/Globulin Ratio 0.94 Urine Color Dark yellow (YELLOW) Urine Appearance Cloudy (CLEAR) Urine pH 5.5 (5.0-9.0) Ur Specific [place] 1.010 (1.005-1.030) Urine Protein Negative (NEGATIVE) Urine Glucose (UA) Negative (NEGATIVE) Urine Ketones Negative (NEGATIVE) Urine Occult Blood Negative (NEGATIVE) Urine Nitrite Negative (NEGATIVE) Urine Bilirubin Negative (NEGATIVE) Urine Urobilinogen 0.2 (0.2-1.0) mg/dL Ur Leukocyte Esterase Small H (NEGATIVE) Meds: Medications Generic Name Dose Route Start Last Admin Trade Name Freq PRN Reason Stop Dose Admin Sodium Chloride 1,000 mls @ 999 mls/hr 04/03/21 15:00 Normal Saline IV 04/03/21 16:00 .BOLUS ONE Discontinued Medications Generic Name Dose Route Start Last Admin Trade Name Freq PRN Reason Stop Dose Admin Diphtheria/Tetanus/Acell Pertussis 0.5 ml 04/03/21 13:14 04/03/21 13:57 Diphtheria,Pertussis(Acell),Tetanus Vaccine 0.5 Ml Syringe IM 04/03/21 13:15 0.5 ml .ONCE ONE Administration Lidocaine HCl 30 ml 04/03/21 13:14 04/03/21 13:59 Lidocaine 1% 30 Ml Sdv INJECT 04/03/21 13:15 10 ml ONETIME ONE Administration Meclizine HCl 25 mg 04/03/21 14:59 Meclizine 12.5 Mg Tab PO 04/03/21 15:00 ONETIME ONE Potassium Chloride 60 meq 04/03/21 15:00 Potassium Chloride 10 Meq Tab.Er PO 04/03/21 15:01 ONETIME ONE - Radiology Interpretation Free Text/Narrative:: CT Head: Subtle microvascular ischemic changes. No I.C. jimmy, hydrocephalus, or bleed per Rad. report. Departure - Departure Time of Disposition: 16:25 Disposition: Home, Self-Care 01 Condition: Fair Clinical Impression: Dehydration, Vertigo, Hypokalemia Occipital scalp laceration Qualifiers: Encounter type: initial encounter Qualified Code(s): S01.01XA - Laceration without foreign body of scalp, initial encounter - Discharge Information *PRESCRIPTION DRUG MONITORING PROGRAM REVIEWED*: Not Applicable *COPY OF PRESCRIPTION DRUG MONITORING REPORT IN PATIENT ARTURO: Not Applicable Instructions: Sutures, [place], or Adhesive Wound Closure, [id number], Dehydration, Adult, [id number], Vertigo, Potassium Content of Foods Forms: ED Department Discharge Additional Instructions: Rx: Meclizine 25mg Drink plenty of water. Eat a higher potassium diet (a banana each day). Use your walker for stability. Follow up in clinic in 7 to 10 days for staple removal, recheck of dizziness, and potassium level. Sepsis Event Note (ED) - Focused Exam Vital Signs: Vital Signs Temp Pulse Resp BP Pulse Ox 04/03/21 12:55 97.4 F 92 23 H 127/68 96 - My Orders Last 24 Hours: My Active Orders 04/03/21 13:13 EKG 12 Lead [EKG Documentation Completion] [RC] STAT 04/03/21 13:14 Vaccines to be Administered [RC] PER UNIT ROUTINE 04/03/21 13:52 Orthostatic Vital Signs [RC] ASDIRECTED 04/03/21 14:19 CULTURE URINE [RM] Stat UA W/MICROSCOPIC [URIN] Stat 04/03/21 15:00 Sodium Chloride 0.9% [Normal Saline] 1,000 ml IV .BOLUS - Assessment/Plan Last 24 Hours: My Active Orders 04/03/21 13:13 EKG 12 Lead [EKG Documentation Completion] [RC] STAT 04/03/21 13:14 Vaccines to be Administered [RC] PER UNIT ROUTINE 04/03/21 13:52 Orthostatic Vital Signs [RC] ASDIRECTED 04/03/21 14:19 CULTURE URINE [RM] Stat UA W/MICROSCOPIC [URIN] Stat 04/03/21 15:00 Sodium Chloride 0.9% [Normal Saline] 1,000 ml IV .BOLUS
[2021-04-03] MEDS ORDERED: Diphtheria,Pertussis(Acell),Tetanus Vaccine 0.5 ML Syringe IM ONE (13:14)
[2021-04-03] MEDS ORDERED: Lidocaine 1% 30 ML SDV INJECT ONE (13:14)
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
[2021-04-03] MEDS ORDERED: Meclizine 12.5 MG Tab PO ONE (14:59)
[2021-04-03] MEDS ORDERED: Sodium Chloride 0.9% 1,000 ML IV ONE (15:00)
[2021-04-03] MEDS ORDERED: Potassium Chloride 10 MEQ Tab.ER PO ONE (15:00)
== END 2021-04-03 16:30 | disposition home or self-care (01) ==
LOC: DL.ED 12:38
DX: S01.01XA Laceration without foreign body of scalp, initial encounter (principal); E86.0 Dehydration; R42 Dizziness and giddiness; E87.6 Hypokalemia; I10 Essential (primary) hypertension; Z79.899 Other long term (current) drug therapy; Z23 Encounter for immunization; W26.8XXA Contact with other sharp object(s), not elsewhere classified, initial encounter
CPT/HCPCS: 12002; 36415; 70450; 80053; 81001; 83735; 84484; 85025; 87086; 87088; 87186; 90471; 90715; 93005; 93010; 99284; 99284-25; A9270-GY; J7030

== ENCOUNTER 2021-07-25 07:39 | Emergency (ER) | payer MEDICARE, MEDICAID ==
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
--- NOTE | 2021-07-25 08:39 | CR ---
PROCEDURE INFORMATION: Exam: XR Left Wrist Exam date and time: 07/25/2021 8:08 AM Age: 71 years old Clinical indication: Injury or trauma; Fall; Blunt trauma (contusions or hematomas); Wrist; Left; Prior surgery; Surgery date: 6+ months; Additional info: Fall, intoxicated, left wrist knee pain TECHNIQUE: Imaging protocol: XR Left wrist. Views: 3 or more views. COMPARISON: No relevant prior studies available. FINDINGS: Tubes, catheters and devices: The hardware is intact. Bones/joints: Anatomic alignment is appreciated. Status post open reduction and internal fixation (ORIF). The fracture lines are not well appreciated consistent with healing. No hardware complication appreciated. Old nonunited fracture of the ulnar styloid process. Positive ulnar variance. Mild narrowing of the radiocarpal joint space. Soft tissues: Multiple metallic densities within the soft tissues adjacent to the mid forearm. IMPRESSION: 1. Positive ulnar variance. 2. No acute findings. 3. Old fracture deformities
--- NOTE | 2021-07-25 08:41 | CR ---
PROCEDURE INFORMATION: Exam: XR Left Knee Exam date and time: 07/25/2021 8:07 AM Age: 71 years old Clinical indication: Injury or trauma; Fall; Blunt trauma; Knee; Left; Prior surgery; Surgery date: 6+ months; Additional info: Fall, intoxicated, left wrist knee pain TECHNIQUE: Imaging protocol: XR Left knee. Views: 3 views. COMPARISON: No relevant prior studies available. FINDINGS: Bones/joints: Status post total knee arthroplasty without evidence of migration, fracture, or failure. Radiopaque cement about the femoral and tibial components. Lucency noted at the bone-cement interface at the distal left femur and proximal left tibia. Moderate joint effusion. Soft tissues: Normal. IMPRESSION: 1. Status post total knee arthroplasty without evidence of migration, fracture, or failure. 2. Moderate joint effusion.
[2021-07-25] MEDS ORDERED: Acetaminophen 325 MG Tab PO ONE (09:03)
[2021-07-25] MEDS ORDERED: Ibuprofen 600 MG Tab PO ONE (09:03)
== END 2021-07-25 09:24 | disposition home or self-care (01) ==
LOC: DL.ED 07:39
DX: S63.502A Unspecified sprain of left wrist, initial encounter (principal); S60.212A Contusion of left wrist, initial encounter; M25.462 Effusion, left knee; F10.129 Alcohol abuse with intoxication, unspecified; K21.9 Gastro-esophageal reflux disease without esophagitis; I10 Essential (primary) hypertension; Z79.899 Other long term (current) drug therapy; W18.39XA Other fall on same level, initial encounter; Y93.01 Activity, walking, marching and hiking; Y92.009 Unspecified place in unspecified non-institutional (private) residence as the place of occurrence of the external cause
CPT/HCPCS: 73110-LT; 73562-LT; 99284-25; A9270-GY

== ENCOUNTER 2022-01-15 11:52 | Observation (INO) | payer MEDICARE, MEDICAID ==
[2022-01-15] MEDS ORDERED: Sodium Chloride 0.9% 10 ML Syringe FLUSH PRN (11:58)
[2022-01-15 12:39] LABS: AMPHETAMINES,URINE NEGATIVE (NEGATIVE); BARBITURATES,URINE NEGATIVE (NEGATIVE); BENZODIAZEPINE,URINE NEGATIVE (NEGATIVE); MDMA (ECSTASY), URINE NEGATIVE (NEGATIVE); METHADONE,URINE NEGATIVE (NEGATIVE); METHAMPHETAMINES,URINE NEGATIVE (NEGATIVE); OPIATES,URINE NEGATIVE (NEGATIVE); OXYCODONE,URINE NEGATIVE (NEGATIVE); PHENCYCLIDINE,URINE NEGATIVE (NEGATIVE); TCA,URINE NEGATIVE (NEGATIVE)
[2022-01-15 12:47] LABS: ANION GAP 12.9 mEq/L (7-13); CHLORIDE,CL 108 mmol/L (98-107); SODIUM,NA 147 mmol/L (136-145)
[2022-01-15] MEDS ORDERED: Iopamidol 755 Mg/ML 100 ML Bottle IVPUSH ONE (12:53)
[2022-01-15] MEDS ORDERED: Labetalol 20 MG/4 ML Syringe ONE (13:05)
[2022-01-15] MEDS ORDERED: Labetalol 20 MG/4 ML Syringe IVPUSH ONE (13:21)
[2022-01-15] MEDS ORDERED: INFUSION IV STA (13:32)
[2022-01-15] MEDS ORDERED: ALTEPLASE IV STA (13:32)
[2022-01-15] MEDS ORDERED: Bisacodyl 5 MG Tab PO PRN (15:18)
[2022-01-15] MEDS ORDERED: Albuterol/Ipratropium 3.0-0.5 MG/3 ML Neb Soln NEB PRN (15:18)
[2022-01-15] MEDS ORDERED: Polyethylene Glycol 3350 Powder 17 GM Packet PO PRN (15:18)
[2022-01-15] MEDS ORDERED: Ketorolac 30 MG/ML SDV IVPUSH PRN (15:18)
[2022-01-15] MEDS ORDERED: Ondansetron 4 MG/2 ML SDV IVPUSH PRN (15:18)
[2022-01-15] MEDS ORDERED: Acetaminophen 325 MG Tab PO PRN (15:18)
[2022-01-15] MEDS ORDERED: hydrALAZINE 20 MG/ML SDV IVPUSH PRN (15:25)
[2022-01-15] MEDS ORDERED: Metoprolol Tartrate 5 MG/5 ML SDV IVPUSH PRN (15:26)
[2022-01-15] MEDS ORDERED: Sodium Chloride 0.9% 1,000 ML IV SCH (15:30)
[2022-01-15] MEDS ORDERED: Labetalol 20 MG/4 ML Syringe IVPUSH PRN (15:35)
[2022-01-15 15:49] LABS: HEMOGLOBIN A1C 5.6 % (<5.7)
[2022-01-15] MEDS ORDERED: Aspirin 81 MG Tab.Chew PO ONE (16:49)
[2022-01-15] MEDS: Pantoprazole 40 MG Vial IVPUSH SCH (22:01)
[2022-01-16 06:27] LABS: ANION GAP 11.6 mEq/L (7-13); CHLORIDE,CL 112 mmol/L (98-107); SODIUM,NA 148 mmol/L (136-145)
[2022-01-16] MEDS ORDERED: Aspirin 81 MG Tab.Chew PO SCH (08:00)
[2022-01-16] MEDS: Pantoprazole 40 MG Vial IVPUSH SCH (09:20)
== END 2022-01-16 13:34 | disposition home or self-care (01) ==
LOC: DL.ED 11:52 → DL.MS 15:28
PROVIDERS: ADMIT Internal Medicine; ATTEND Internal Medicine
DX: T43.211A Poisoning by selective serotonin and norepinephrine reuptake inhibitors, accidental (unintentional), initial encounter (principal); G93.40 Encephalopathy, unspecified; I10 Essential (primary) hypertension; E55.9 Vitamin D deficiency, unspecified; S40.012A Contusion of left shoulder, initial encounter; M81.0 Age-related osteoporosis without current pathological fracture; K21.9 Gastro-esophageal reflux disease without esophagitis; G62.9 Polyneuropathy, unspecified; F17.210 Nicotine dependence, cigarettes, uncomplicated; E87.1 Hypo-osmolality and hyponatremia; E87.8 Other disorders of electrolyte and fluid balance, not elsewhere classified; E88.09 Other disorders of plasma-protein metabolism, not elsewhere classified; R91.8 Other nonspecific abnormal finding of lung field; K20.90 Esophagitis, unspecified without bleeding; F32.A Depression, unspecified; F41.9 Anxiety disorder, unspecified; F10.21 Alcohol dependence, in remission; F19.11 Other psychoactive substance abuse, in remission; Z98.1 Arthrodesis status; Z96.653 Presence of artificial knee joint, bilateral; Z87.81 Personal history of (healed) traumatic fracture; Z87.448 Personal history of other diseases of urinary system; Z85.828 Personal history of other malignant neoplasm of skin; Z87.39 Personal history of other diseases of the musculoskeletal system and connective tissue; Z79.1 Long term (current) use of non-steroidal anti-inflammatories (NSAID); Z79.899 Other long term (current) drug therapy; Z20.822 Contact with and (suspected) exposure to COVID-19; Z98.890 Other specified postprocedural states; M19.90 Unspecified osteoarthritis, unspecified site; X58.XXXA Exposure to other specified factors, initial encounter
CPT/HCPCS: 36415; 70450; 70460; 70491; 70551; 72125; 73030-LT; 80053; 80061; 80305-QW; 80307; 81003; 82947; 83036; 83735; 85025; 85610; 87086; 97165-GO; 99217; 99220; A9270-GY; C9113; J3490; J7030; Q9967; U0002

== ENCOUNTER 2022-09-23 16:11 | Emergency (ER) | payer MEDICARE, MEDICAID ==
[2022-09-23] MEDS ORDERED: Midazolam 1 MG/ML 2 ML SDV IV ONE (16:12)
[2022-09-23] MEDS ORDERED: Acetaminophen/HYDROcodone 325-5 MG Tab PO ONE (16:12)
[2022-09-23] MEDS ORDERED: Propofol 200 MG/20 ML SDV IV ONE (16:12)
[2022-09-23] MEDS ORDERED: fentaNYL 100 MCG/2 ML SDV IV ONE (16:12)
[2022-09-23] MEDS ORDERED: fentaNYL 100 MCG/2 ML SDV ONE (18:20)
[2022-09-23] MEDS ORDERED: Midazolam 1 MG/ML 2 ML SDV ONE (18:20)
[2022-09-23] MEDS ORDERED: Acetaminophen/HYDROcodone 325-5 MG Tab ONE (19:07)
== END 2022-09-23 19:40 | disposition home or self-care (01) ==
LOC: DL.ED 16:11
DX: S52.502A Unspecified fracture of the lower end of left radius, initial encounter for closed fracture (principal); S52.602A Unspecified fracture of lower end of left ulna, initial encounter for closed fracture; I10 Essential (primary) hypertension; K21.9 Gastro-esophageal reflux disease without esophagitis; F17.210 Nicotine dependence, cigarettes, uncomplicated; Z79.899 Other long term (current) drug therapy; W01.0XXA Fall on same level from slipping, tripping and stumbling without subsequent striking against object, initial encounter
CPT/HCPCS: 01820; 25605; 29125; 73100; 73110; 99152; 99153; 99283; 99284; A9270; J2250; J2704; J3010

== ENCOUNTER 2024-11-27 17:57 | Emergency (ER) | payer MEDICARE, MEDICAID ==
[2024-11-27] MEDS: Ketorolac 30 MG/ML SDV IM ONE (22:02)
== END 2024-11-27 22:25 | disposition home or self-care (01) ==
LOC: DL.ED 17:57
DX: S82.002A Unspecified fracture of left patella, initial encounter for closed fracture (principal); S72.402A Unspecified fracture of lower end of left femur, initial encounter for closed fracture; M97.12XA Periprosthetic fracture around internal prosthetic left knee joint, initial encounter; I10 Essential (primary) hypertension; K21.9 Gastro-esophageal reflux disease without esophagitis; F17.210 Nicotine dependence, cigarettes, uncomplicated; Z79.899 Other long term (current) drug therapy; V00.831A Fall from motorized mobility scooter, initial encounter
CPT/HCPCS: 73562; 96372; 99284; J1885

== ENCOUNTER 2025-08-17 11:44 | Emergency (ER) | payer MEDICARE, MEDICAID ==
[2025-08-17] MEDS: Ketorolac 30 MG/ML SDV IM ONE (14:08)
== END 2025-08-17 15:06 | disposition home or self-care (01) ==
LOC: DL.ED 11:44
DX: J21.9 Acute bronchiolitis, unspecified (principal); I10 Essential (primary) hypertension; K21.9 Gastro-esophageal reflux disease without esophagitis; F17.200 Nicotine dependence, unspecified, uncomplicated; Z85.118 Personal history of other malignant neoplasm of bronchus and lung; Z79.899 Other long term (current) drug therapy
CPT/HCPCS: 71046; 96372; 99284; J1885

== ENCOUNTER 2025-10-07 14:21 | Emergency (ER) | payer MEDICARE, MEDICAID ==
[2025-10-07] MEDS ORDERED: Sodium Chloride 0.9% 10 ML Syringe FLUSH PRN (14:41)
[2025-10-07] MEDS: fentaNYL 100 MCG/2 ML SDV IVPUSH ONE (14:50)
[2025-10-07 14:55] LABS: PLATELET COUNT,PLT 177 10^3/uL (150-450); RED BLOOD CELL COUNT 3.62 10^6/uL (4.2-5.4); WHITE BLOOD CELL COUNT,WBC 30.5 10^3/uL (5.0-10.0)
[2025-10-07 14:58] LABS: BASOPHILS PERCENT AUTO 0.1 % (0.0-1.0); EOSINOPHILS PERCENT AUTO 0.0 % (1.0-3.0); LYMPHOCYTES PERCENT AUTO 0.4 % (20.5-50.1); MONOCYTES PERCENT AUTO 1.2 % (2-8); NEUTROPHILS PERCENT AUTO 98.3 % (42.2-75.2)
[2025-10-07 15:21] LABS: INR 0.9 (0.9-1.2)
[2025-10-07 15:26] LABS: ALANINE AMINOTRANSFERASE,ALT 34.0 U/L (14-59); ASPARTATE AMNIOTRANSFERASE,AST 54.0 U/L (15-37); BILIRUBIN TOTAL 0.7 mg/dL (0.2-1.0); BLOOD UREA NITROGEN,BUN 38.0 mg/dL (7-18); CARBON DIOXIDE,CO2 25.0 mmol/L (21-32); CHLORIDE,CL 102.0 mmol/L (98-107); CREATININE 2.13 mg/dL (0.55-1.02); EST CRCL DRUG DOSING (CG) 18.27 mL/min; GLUCOSE RANDOM 153.0 mg/dL (70-99); POTASSIUM,K 4.6 mmol/L (3.5-5.1); PROTEIN TOTAL,TP 5.6 g/dL (6.4-8.2); SODIUM,NA 141.0 mmol/L (136-145)
[2025-10-07 15:34] LABS: A/G RATIO 1.07; ESTIMATED GFR 24.0 mL/min (>=60)
[2025-10-07 15:55] LABS: PTT,PARTIAL THROMBOPLSTIN TIME > 120.0 SEC (22.0-34.0)
[2025-10-07 15:57] LABS: LACTIC ACID 6.7 mmol/L (0.4-2.0)
[2025-10-07] MEDS ORDERED: Norepinephrine Bit/D5W Premix 4 MG/250 ML BAG IV SCH (16:00)
[2025-10-07 16:15] LABS: BAND PERCENT MAN 15 %; LYMPHOCYTES PERCENT MAN 1 % (20-50); METAMYELOCYTE PERCENT MAN 2; MONOCYTES PERCENT MAN 3 % (2-8); SEG NEUTROPHILS PERCENT MAN 79 % (42-75)
[2025-10-07] MEDS: Benzocaine 20% Topical Spray UD MUCMEM ONE (16:18)
[2025-10-07 17:13] LABS: APPEARANCE,URINE SLIGHTLY CLOUDY (CLEAR); GLUCOSE,URINE NEGATIVE (NEGATIVE); OCCULT BLOOD,URINE LARGE (NEGATIVE)
[2025-10-07 17:19] LABS: EPITHELIAL CELLS,URINE RARE /HPF (NOT SEEN)
== END 2025-10-07 17:23 ==
LOC: DL.ED 14:21
DX: A41.9 Sepsis, unspecified organism (principal); R65.20 Severe sepsis without septic shock; N17.9 Acute kidney failure, unspecified; K56.609 Unspecified intestinal obstruction, unspecified as to partial versus complete obstruction; I10 Essential (primary) hypertension; K21.9 Gastro-esophageal reflux disease without esophagitis; M19.90 Unspecified osteoarthritis, unspecified site; Z79.899 Other long term (current) drug therapy; Z79.51 Long term (current) use of inhaled steroids; Z72.0 Tobacco use
CPT/HCPCS: 36415; 71045; 74018; 80053; 81001; 83605; 83690; 83735; 84484; 85025; 85610; 85730; 86140; 87040; 87086; 87088; 87186; 93005; 96361; 96365; 96375; 99285; A9270; J2543; J3010; J7040; 93010; J1171